=== PATIENT | female | born 1950 | race Two or more races ===

== ENCOUNTER 2024-10-23 15:44 | Emergency (ER) | payer OTHER ==
[~2024-10-23] VITALS: Ht 172.7 cm; Wt 99.8 kg
[2024-10-23] MEDS ORDERED: IRBESARTAN-HCT1 EAC1 PO (16:12)
[2024-10-23] MEDS ORDERED: GRALISE600 MG PO (16:12)
[2024-10-23] MEDS ORDERED: VITAMIN D3 (16:13)
[2024-10-23] MEDS ORDERED: VAZALORE81 MG PO (16:13)
[2024-10-23] MEDS ORDERED: PRAVASTATIN SOD20 MG PO (16:13)
[2024-10-23] MEDS ORDERED: GLUMETZA500 MG PO (16:14)
[2024-10-23] MEDS ORDERED: GLIMEPIRIDE4 M1 PO (16:14)
[2024-10-23] MEDS ORDERED: ORPHENADRINE CITRATE 30 MG/ML AMPUL ONE (18:42)
[2024-10-23] MEDS ORDERED: KETOROLAC TROMETHAMINE 60 MG VIAL IM ONE ×2 (18:43→18:45)
[2024-10-23] MEDS ORDERED: ORPHENADRINE CITRATE 30 MG/ML AMPUL IM ONE (18:45)
[2024-10-23] MEDS ORDERED: NORFLEX100MG PO (22:00)
[2024-10-23] MEDS ORDERED: VOLTAREN ARTHRI20 GM TOP (22:00)
[2024-10-23] MEDS ORDERED: KETO10TA2 PO (22:01)
== END 2024-10-23 22:09 | disposition home or self-care (01) ==
LOC: ER 15:47
DX: S89.82XA Other specified injuries of left lower leg, initial encounter (principal); W19.XXXA Unspecified fall, initial encounter; Y93.89 Activity, other specified; Y92.098 Other place in other non-institutional residence as the place of occurrence of the external cause; Y99.8 Other external cause status; E11.9 Type 2 diabetes mellitus without complications; Z79.84 Long term (current) use of oral hypoglycemic drugs
CPT/HCPCS: 73560; 73590; 73610; 73630; 96372; 99283; J1885